=== PATIENT | female | born 1985 | race Caucasian/White ===

== ENCOUNTER 2017-12-23 11:44 | Emergency (ER) | payer MEDICAID, OTHER ==
[2017-12-23] MEDS ORDERED: DiphenhydrAMINE 50 mg/ml Inj IVP STA (12:53)
--- NOTE | 2017-12-23 13:17 | C.PDOC ---
History Of Present Illness 32 y/o female with history of asthma presents to ED with c/o itchy rash to neck area for 3 days. Patient notes rash is distributed like necklace but denies recent chain or necklace use. Patient denies fever, chills, nausea, vomiting or any other complaints at this time. Time Seen by Provider: 12/23/17 12:35 Chief Complaint (Nursing): Abnormal Skin Integrity History Per: Patient History/Exam Limitations: no limitations Onset/Duration Of Symptoms: Days Current Symptoms Are (Timing): Still Present Past Medical History Reviewed: Historical Data, Nursing Documentation, Vital Signs Vital Signs: Last Vital Signs Temp 98.1 F 12/23/17 12:18 Pulse 83 12/23/17 12:18 Resp 16 12/23/17 12:18 BP 112/74 12/23/17 12:18 Pulse Ox 98 12/23/17 13:33 - Medical History PMH: Asthma Surgical History: No Surg Hx - [facility] Procedures ESOPHAGOGASTRODUODENOSCOPY [EGD] W/CLOSED BIOPSY (01/13/14) Family History: States: No Known Family Hx - Social History Hx Tobacco Use: Yes Hx Alcohol Use: Yes (special occasions) Hx Substance Use: Yes (cannabis) - Immunization History Hx Tetanus Toxoid Vaccination: No Hx Influenza Vaccination: No Hx Pneumococcal Vaccination: No Review Of Systems Constitutional: Negative for: Fever, Chills Cardiovascular: Negative for: Chest Pain Respiratory: Negative for: Shortness of Breath Gastrointestinal: Negative for: Nausea, Vomiting Skin: Positive for: Rash Physical Exam - Physical Exam Appears: Non-toxic, No Acute Distress Skin: Warm, Dry, Rash (Maculopapular pruritic around neck) Head: Atraumatic, Normacephalic Eye(s): bilateral: Normal Inspection Oral Mucosa: Moist Tongue: Normal Appearing, No Swelling Throat: Normal, No Erythema, No Exudate Neck: Normal ROM, Supple Cardiovascular: Rhythm Regular Respiratory: Normal Breath Sounds, No Rales, No Rhonchi, No Wheezing Neurological/Psych: Oriented x3, Normal Speech, Normal Cognition ED Course And Treatment O2 Sat by Pulse Oximetry: 98 (RA) Pulse Ox Interpretation: Normal Disposition Counseled Patient/Family Regarding: Diagnosis, Need For Followup, Rx Given - Disposition Referrals: Julio Treadwell DO [Staff Provider] - Disposition: HOME/ ROUTINE Disposition Time: 14:18 Condition: STABLE Prescriptions: DiphenhydrAMINE [Benadryl] 25 mg PO BID #8 cap Prednisone [Deltasone] 40 mg PO DAILY #8 tablet Instructions: Contact Dermatitis (DC) Forms: [facility] ([place]), General Discharge Instructions - Clinical Impression Clinical Impression: Skin irritation, Dermatitis - Scribe Statement The provider has reviewed the documentation as recorded by the Gracy Enciso All medical record entries made by the Gracy were at my direction and personally dictated by me. I have reviewed the chart and agree that the record accurately reflects my personal performance of the history, physical exam, medical decision making, and the department course for this patient. I have also personally directed, reviewed, and agree with the discharge instructions and disposition.
[2017-12-23 14:25] VITALS: BP 111/77; PULSE 66; RESP 18; TEMP 98.8; O2SAT 99
== END 2017-12-23 14:24 | disposition home or self-care (01) ==
LOC: C.ER 11:44
DX: L30.9 Dermatitis, unspecified (principal); R23.8 Other skin changes; Z72.0 Tobacco use